=== PATIENT | male | born 1975 | race Hispanic/Latino ===

== ENCOUNTER 2018-06-20 22:39 | Emergency (ER) | payer MEDICARE, OTHER | END 2018-06-20 23:54 | disposition home or self-care (01) | LOC: EDH 22:39 | DX: H61.21 Impacted cerumen, right ear (principal) ==

== ENCOUNTER 2018-09-16 22:56 | Emergency (ER) | payer OTHER, MEDICARE ==
[2018-09-16] MEDS ORDERED: ACETAMINOPHEN EXTRA STRENGTH 500 MG TABLET ONE (23:51)
== END 2018-09-17 00:44 | disposition home or self-care (01) ==
LOC: EDH 22:56
DX: K62.89 Other specified diseases of anus and rectum (principal); K62.5 Hemorrhage of anus and rectum; I10 Essential (primary) hypertension; F41.9 Anxiety disorder, unspecified
CPT/HCPCS: 82270

== ENCOUNTER 2022-06-05 16:06 | Emergency (ER) | payer OTHER, MEDICARE ==
[~2022-06-05] VITALS: Ht 177.8 cm; Wt 99.8 kg
[2022-06-05 16:33] VITALS: BP 128/68
[2022-06-05] MEDS ORDERED: CEPH500B PO (17:52)
[2022-06-05] MEDS ORDERED: KETOROLAC 30MG VIAL (30MG/ML) IM STA (17:53)
== END 2022-06-05 18:10 | disposition home or self-care (01) ==
LOC: EDH 16:06
DX: L02.412 Cutaneous abscess of left axilla (principal); F41.9 Anxiety disorder, unspecified; F32.A Depression, unspecified; E78.00 Pure hypercholesterolemia, unspecified; I10 Essential (primary) hypertension; Z90.49 Acquired absence of other specified parts of digestive tract
CPT/HCPCS: 99283; 96372; J1885

== ENCOUNTER 2025-06-11 22:39 | Emergency (ER) | payer OTHER, MEDICAID ==
[~2025-06-11] VITALS: Ht 177.8 cm; Wt 101.2 kg
[2025-06-11 23:32] LABS: IMMATURE GRANULOCYTE ABSOLUTE 0.03 K/uL (0-1); NUCLEATED RED BLOOD CELLS 0.0 % (0.0-0.19); PLATELET COUNT (AUTO) 271 K/uL (130-400); RED BLOOD CELL COUNT(AUTO) 4.97 MIL/uL (4.50-6.20); RED CELL DISTRIBUTION WIDTH 12.6 % (11.0-15.5); WHITE BLOOD COUNT (AUTO) 8.5 K/uL (4.8-10.8)
[2025-06-11 23:40] LABS: CREATININE 0.9 mg/dL (0.5-1.3); GLOMERULAR FILTR. RATE CALC 104.0 mL/min (>90); GLUCOSE,RANDOM 106.0 mg/dL (70-105); SODIUM SERUM 140.0 mmol/L (136-145); UREA NITROGEN, BLOOD 20.0 mg/dL (7-18)
[2025-06-11 23:45] LABS: APPEARANCE,URINE CLEAR (CLEAR); GLUCOSE, URINE (UA) NEGATIVE (NEGATIVE); LEUKOCYTE ESTERASE ,URINE NEGATIVE Leu/uL (NEGATIVE); NITRATE,URINE NEGATIVE (NEGATIVE); OCCULT BLOOD,URINE NEGATIVE (NEGATIVE)
[2025-06-11 23:49] LABS: ADD UA MICROSCOPIC NO
[2025-06-11 23:52] LABS: AMPHET/METH SCREEN,URINE NEGATIVE (NEGATIVE); BARBITURATE SCREEN, URINE NEGATIVE (NEGATIVE); CANNABINOID SCREEN,URINE NEGATIVE (NEGATIVE); COCAINE SCREEN,URINE NEGATIVE (NEGATIVE)
--- NOTE | 2025-06-11 23:58 | ERN ---
ED Note History of Present Illness Stated Complaint: C/O ABD PAIN X 3 DAYS Chief Complaint: Abdominal Pain Time Seen by MD: 22:48 Dictation: This is a 50-year-old obese male who presented to the emergency room with complaints of abdominal bloating indigestion symptoms unable to catch his breath as he feels extremely bloated. He denied any nausea vomitings or diarrhea. He did state that he has a bowel movement daily. No hematemesis or melena. No fever chills or rigors. This started after he ate very spicy large amounts of chili. He also reported severe flatulence and he tried taking Tums and Gas-X with some relief Temperature 98 pulse 83 respirations 20 blood pressure 141/86 with a pulse oximetry of 99% on room air BMI 33 His chronic medical problems include anxiety depression, hypertension and hypercholesterolemia Allergies: Coded Allergies: No Known Allergies (Unverified Allergy, Unknown, 06/05/22) Home Meds Active Scripts Cephalexin Monohydrate (Keflex) 500 Mg Cap, 500 MG PO TID for 7 Days, #21 CAP Prov:SWAPNA LEMOS MD 06/05/22 Past Medical History Past Medical History: Anxiety, Depression, High Cholesterol, Hypertension Surgical History: None RN Note Reviewed/Agreed w/PFSH: Yes Review of System Dictation Constitutional: Negative for fever,chills, and weight loss Eyes: Negative for injury, pain,redness, and discharge ENT: Negative for injury,pain or swelling Cardiovascular: Negative for chest pain, palpitations, and edema Respiratory: Negative for shortness of breath, cough, and wheezing, Abdomen/GI: Positive for abdominal pain diffusely, bloating, feeling gassy, denied nausea, vomiting, diarrhea, and constipation Back: Negative for injury and pain : Negative for injury, bleeding and discharge MS/Extremity: Negative for injury and deformity Skin: Negative for rash, and discoloration Neuro: Negative for headache, weakness, numbness, tingling, and seizure Psych: Negative for suicide ideation, homicidal ideation, and hallucinations Initial Vital Sign VS Vital Signs Date Time Temp Pulse Resp B/P (MAP) Pulse Ox O2 Delivery O2 Flow Rate FiO2 06/11/25 22:41 98.1 83 20 141/86 100 Room Air 06/11/25 23:18 0 21 Physical Exam Dictation General: awake, alert, NAD appears morbidly obese Head/Face: Normocephalic, atraumatic Eyes: PERRL, EOMI, vision at baseline ENT: oral cavity clear, TMs clear, no signs of infection Neck: Trachea midline, supple, no nuchal rigidity Cardiovascular: RRR, normal S1/S2, No MRGs, no JVD Respiratory: CTAB, no respiratory distress, No rales or wheezes Abdomen: Soft, very obese non-tender, normal bowel sounds, no guarding or rebound. Skin: Warm, dry, normal turgor, no rash MS/Extremity: Pulses equal, no cyanosis, neurovascular intact, FROM Neuro: COAx4, GCS 15, strength 5/5, CN 2-12 intact, normal cerebellar exam, normal gait, Psych: Normal behavior, mood, and affect normal Extremities-trace edema without any palpable cords, Homans sign is negative Results (Laboratory/Radiology) Laboratory/Radiology Laboratory Tests Test 06/11/25 23:15 White Blood Count 8.5 K/uL (4.8-10.8) Red Blood Count 4.97 MIL/uL (4.50-6.20) Hemoglobin 16.1 g/dL (14.0-18.0) Hematocrit 48.9 % (42-54) Mean Corpuscular Volume 98.4 fL (79-99) Mean Corpuscular Hemoglobin 32.4 pg (27.0-33.0) Mean Corpuscular Hemoglobin Concent 32.9 g/dL (32.0-36.0) Red Cell Distribution Width 12.6 % (11.0-15.5) Platelet Count 271 K/uL (130-400) Mean Platelet Volume 9.8 fL (7.5-10.5) Immature Granulocyte % (Auto) 0.4 % (0-1) Neutrophils (%) (Auto) 44.7 % (40.0-77.0) Lymphocytes (%) (Auto) 39.6 % (21.0-51.0) Monocytes (%) (Auto) 9.9 % (3.0-13.0) Eosinophils (%) (Auto) 4.8 % (0.0-8.0) Basophils (%) (Auto) 0.6 % (0.0-5.0) Neutrophils # (Auto) 3.8 K/uL (1.8-7.7) Lymphocytes # (Auto) 3.4 K/uL (1.0-4.8) Monocytes # (Auto) 0.8 K/uL (0.1-1.0) Eosinophils # (Auto) 0.41 K/uL (0.00-0.70) Basophils # (Auto) 0.05 K/uL (0.00-0.20) Absolute Immature Granulocyte (auto 0.03 K/uL (0-1) Nucleated Red Blood Cells 0.0 % (0.0-0.19) Urine Color LIGHT-YELLOW (YELLOW) Urine Appearance CLEAR (CLEAR) Urine pH 6.0 (5.0-8.0) Urine Specific [place] 1.025 (1.001-1.031) Urine Protein NEGATIVE mg/dL (NEGATIVE) Urine Glucose (UA) NEGATIVE mg/dL (NEGATIVE) Urine Ketones NEGATIVE mg/dL (NEGATIVE) Urine Occult Blood NEGATIVE (NEGATIVE) Urine Nitrate NEGATIVE (NEGATIVE) Urine Bilirubin NEGATIVE mg/dL (NEGATIVE) Urine Urobilinogen 0.2 mg/dL (0.2-1.0) Urine Leukocyte Esterase NEGATIVE Stuart/uL Sodium Level 140 mmol/L (136-145) Potassium Level 3.9 mmol/L (3.5-5.1) Chloride Level 103 mmol/L (101-111) Carbon Dioxide Level 29 mmol/L (21-32) Blood Urea Nitrogen 20 mg/dL (7-18) H Creatinine 0.9 mg/dL (0.5-1.3) Glomerular Filtration Rate Calc 104 mL/min (>90) Random Glucose 106 mg/dL (70-105) H Total Calcium 8.8 mg/dL (8.5-10.1) Amylase Level 87 U/L (25-115) # Lipase 54 U/L (16-77) Urine Opiates Screen NEGATIVE (NEGATIVE) Urine Barbiturates Screen NEGATIVE (NEGATIVE) Urine Phencyclidine Screen NEGATIVE (NEGATIVE) Urine Amphetamines Screen NEGATIVE (NEGATIVE) Urine Benzodiazepines Screen NEGATIVE (NEGATIVE) Urine Cocaine Screen NEGATIVE (NEGATIVE) Urine Marijuana (THC) Screen NEGATIVE (NEGATIVE) Labs Reviewed?: Yes ED Course ED Course Orders Procedure Category Date Status Time Basic Metabolic Panel LAB 06/11/25 Complete 23:17 Lipase LAB 06/11/25 Complete 23:17 Amylase LAB 06/11/25 Complete 23:17 Urinalysis Profile LAB 06/11/25 Complete 23:17 Drug Screen Urine LAB 06/11/25 Complete 23:17 Cbc With Differential LAB 06/11/25 Complete 23:17 Lidocaine Hcl 2% PHA 06/12/25 Complete Viscous (Lidocaine Hcl 00:30 Mag/Alum/Simeth 30ml PHA 06/12/25 Complete (Maalox Plus 30ml) 00:30 Dicyclomine Hcl PHA 06/12/25 Complete (Bentyl 10mg/5ml 00:30 Current Medications Medications (Trade) Dose Ordered Sig/Ave Route PRN Reason Start Time Stop Time Status Last Admin Dose Admin Al Hydroxide/Mg Hydroxide (MAALox PLUS 30ML) 30 ml ONCE ONCE PO 06/12/25 00:30 06/12/25 00:47 DC 06/12/25 00:54 Dicyclomine HCl (Bentyl 10mg/5ml Syrup) 10 mg ONCE ONCE PO 06/12/25 00:30 06/12/25 00:47 DC 06/12/25 00:54 Lidocaine HCl (Lidocaine HCl 2% Viscous) 10 ml ONCE ONCE PO 06/12/25 00:30 06/12/25 00:47 DC 06/12/25 00:55 Vital Signs Date Time Temp Pulse Resp B/P (MAP) Pulse Ox O2 Delivery O2 Flow Rate FiO2 06/12/25 01:59 98.8 82 18 145/62 100 Room Air* 0 21 06/11/25 23:18 98.8 85 18 155/69 99 Room Air* 0 21 06/11/25 22:41 98.1 83 20 141/86 100 Room Air Medical Decision Making MDM Differential diagnosis: Gastritis, esophagitis, gastroesophageal reflux disease, acute cholecystitis, peptic ulcer disease, gastroenteritis, colitis, constipation, pancreatitis This is a 50-year-old obese male who presented to the emergency room with complaints of abdominal bloating indigestion symptoms unable to catch his breath as he feels extremely bloated. He denied any nausea vomitings or diarrhea. He did state that he has a bowel movement daily. No hematemesis or melena. No fever chills or rigors. This started after he ate very spicy large amounts of chili. He also reported severe flatulence and he tried taking Tums and Gas-X with some relief Temperature 98 pulse 83 respirations 20 blood pressure 141/86 with a pulse oximetry of 99% on room air BMI 33 His chronic medical problems include anxiety depression, hypertension and hypercholesterolemia 1156 p.m. CBC is unremarkable. BNP 7 is significant for BUN and creatinine of 20 and 0.9 lipase is 54. Urinalysis is unremarkable UDS is negative. I went over the possibilities likely eating large amounts of beans causing dyspepsia and flatulence. Patient has no other GI symptoms and it is also conceivable that patient has large amounts of constipation also. I went over the labs with him and with a completely benign exam other than the bloating, I explained to him that if he gets worse I would pursue additional testing with the imaging. Patient responded to symptomatic treatment with a GI cocktail Patient will follow up with his primary care physician or return to ER should his symptoms not improve Rationale: Tests considered and ordered secondary to shared decision making include: Labs Previous outside records reviewed: Old ER visits. Risk of complication and/or morbidity or mortality of patient management: None Medications-Per medication reconciliation Need for hospitalization: Patient does not meet criteria for hospitalization. Need for emergency major/minor surgery: No There are no social concerns with this patient. Prescription drug management Prescriptions will include symptomatic care Patient's prior external medical records from other ER visits were reviewed by me as indicated. Prior testing and results from previous visits were reviewed. Prior tests were taken into account with medical decision making and resource utilization, independent historian/historians were used to obtain complete medical history. I independently interpreted the test that were performed, results were reviewed by me and considered findings on radiology if ordered. Medical management and examination interpretation discussions were had by me with other qualified healthcare professionals as indicated for the patient's c are. Problem List Problem List: (1) Dyspepsia with flatulence DX & DISP Disposition: Discharge Departure Impression: Primary Impression: Dyspepsia with flatulence Condition: Stable Additional Instructions: Patient and the caregiver have been informed of all the diagnostic tests and the imaging conducted during the today's visit to the emergency room and has verbalized understanding of the results I have personally reviewed and interpreted all diagnostic exams performed here in the ER today as well as the vital signs documented by the nursing staff. The patient is now being dis charged to home and should follow up with the primary care physician or the specialist as directed by the ER staff. Referrals: ALFRED ARCINIEGA MD (PCP) BECKI MENDIOLA MD Jun 11, 2025 23:58
[2025-06-12] MEDS: DICYCLOMINE HCL 10 MG/5 ML ML PO ONE (00:54)
[2025-06-12] MEDS: MAG/ALUM/SIMETH 30 ML UDCUP PO ONE (00:54)
[2025-06-12] MEDS: LIDOCAINE HCL 2% VISCOUS 15 ML UDCUP PO ONE (00:55)
[2025-06-12 01:59] VITALS: BP 145/62; PULSE 82; RESP 18; TEMP 98.8; O2SAT 100
== END 2025-06-12 01:58 | disposition home or self-care (01) ==
LOC: EDH 22:39
DX: R10.13 Epigastric pain (principal); R14.3 Flatulence; I10 Essential (primary) hypertension; E78.00 Pure hypercholesterolemia, unspecified; F41.9 Anxiety disorder, unspecified; F32.A Depression, unspecified
CPT/HCPCS: 36415; 80048; 80305; 81003; 82150; 83690; 85025; 99284